=== PATIENT | female | born 1955 | race Caucasian/White ===

== ENCOUNTER 2016-08-30 06:54 | Day surgery (SDC) | payer MEDICAID ==
[2016-08-30] MEDS ORDERED: LIDOCAINE 1% 5 ML SDV ONE (07:48)
[2016-08-30] MEDS ORDERED: LR 1,000 ML IV ONE (08:00)
[2016-08-30] MEDS ORDERED: LIDOCAINE 1% 5 ML SDV ID PRN (08:00)
[2016-08-30] MEDS ORDERED: MIDAZOLAM 2 MG/2 ML VIAL ONE (08:24)
[2016-08-30] MEDS ORDERED: PROPOFOL 200 MG/20 ML VIAL ONE ×2 (08:28→08:54)
--- NOTE | 2016-08-30 10:01 | GPN ---
[f rep st] PROCEDURE NOTE PREPROCEDURE DIAGNOSIS: Right upper quadrant abdominal pain, epigastric abdominal pain, nausea, vomiting, and weight loss. POSTPROCEDURE DIAGNOSIS: Right upper quadrant abdominal pain, epigastric abdominal pain, nausea, vomiting, and weight loss. PROCEDURE: Endoscopy with biopsies and colonoscopy with snare polypectomy. ANESTHESIA: Monitored anesthesia care. INDICATIONS: Maine Berry is a 61-year-old female seen in our office by for epigastric abdominal pain, right upper quadrant abdominal pain, nausea , vomiting, and weight loss. She has a negative workup to date. She has never had a colonoscopy. She is here today for upper endoscopy and colonoscopy. The risks and benefits of the procedure were discussed with the patient. The risks include, but not limited to, bleeding, perforation, and risks related to sedation. The patient is ASA class II. DESCRIPTION OF PROCEDURE: The end-viewing endoscope was inserted into the esophagus, into the stomach and the second portion of the duodenum. The GE junction was located at 46 cm from the incisors. There was minimal friability at this area. The Z-line was regular. There was no evidence of Wood's esophagus. The stomach showed mild antral gastritis. Biopsies were taken with cold biopsy forceps to evaluate for Helicobacter pylori. Retroflexed views in the stomach did not show evidence of hiatal hernia. The duodenum in the second portion was normal. Biopsies were taken with cold biopsy forceps to evaluate for celiac disease. The patient was then repositioned, and the pediatric colonoscope was advanced into the terminal ileum, which appeared normal. The appendiceal orifice, ileocecal valve, and the cecum appeared normal. The ascending colon, hepatic flexure, transverse colon, splenic flexure, and descending colon appeared normal. There was a 3 mm polyp in the sigmoid colon, which was removed using cold snare polypectomy technique. This was retrieved for pathology. In the rectum, there was a 3 mm polyp, which was also removed using cold snare, and sent to pathology. Retroflexed views in the rectum were normal. IMPRESSION: 1. Mild friability at the gastroesophageal junction consistent with mild esophagitis. 2. Mild antral gastritis, status post biopsies. 3. Two small polyps removed from the colon. RECOMMENDATIONS: 1. Discharged to home with escort. 2. Advance diet as tolerated. 3. Continue current medications. 4. Consider adding omeprazole 40 mg orally daily for 2 months. 5. Follow up in our GI clinic with as previously scheduled. 6. Follow up the final pathology results. Results will be available within 10 days. 7. Repeat colonoscopy based on final pathology results. If either polyp is found to be adenomatous, I would recommend that she get a repeat colonoscopy in 5 years. 8. Thank you for allowing me to participate in the care of your patient. Please do not hesitate to call for questions. /[id number]/MODL MTDD
== END 2016-08-30 10:30 | disposition home or self-care (01) ==
LOC: FSGY 06:54
PROVIDERS: ATTEND Internal Medicine Gastroenterology
PROC: 0DBP8ZX Excision of Rectum, Via Natural or Artificial Opening Endoscopic, Diagnostic (ICD-10-PCS; principal; 2016-08-30 08:15)
PROC: 0DB98ZX Excision of Duodenum, Via Natural or Artificial Opening Endoscopic, Diagnostic (ICD-10-PCS; principal; 2016-08-30 08:15)
PROC: 0DBN8ZX Excision of Sigmoid Colon, Via Natural or Artificial Opening Endoscopic, Diagnostic (ICD-10-PCS; principal; 2016-08-30 08:15)
PROC: 0DB68ZX Excision of Stomach, Via Natural or Artificial Opening Endoscopic, Diagnostic (ICD-10-PCS; principal; 2016-08-30 08:15)
DX: K20.9 Esophagitis, unspecified (principal); K29.70 Gastritis, unspecified, without bleeding; K62.1 Rectal polyp; K63.5 Polyp of colon
CPT/HCPCS: J2250; J2704

== ENCOUNTER → 2017-01-20 | Outpatient (CLI) | payer MEDICAID | LOC: FIMAGING 14:19 | PROVIDERS: ATTEND Advanced Practice Midwife | DX: D25.1 Intramural leiomyoma of uterus (principal) ==

== ENCOUNTER → 2017-06-15 | Outpatient (CLI) | payer MEDICAID | END | disposition home or self-care (01) | LOC: EDSTATUS 11:37 → FIMAGING 12:50 → FLAB 12:50 | PROVIDERS: ATTEND Family Medicine | DX: M54.6 Pain in thoracic spine (principal) ==

== ENCOUNTER → 2017-08-07 | Outpatient (CLI) | payer MEDICAID | LOC: FIMAGING 12:26 | PROVIDERS: ATTEND Family Medicine | DX: Z13.820 Encounter for screening for osteoporosis (principal); M85.80 Other specified disorders of bone density and structure, unspecified site; E55.9 Vitamin D deficiency, unspecified; Z78.0 Asymptomatic menopausal state; Z82.62 Family history of osteoporosis ==

== ENCOUNTER → 2019-01-30 | Outpatient (CLI) | payer MEDICAID | LOC: FIMAGING 13:25 ==